=== PATIENT | female | born 1985 | race Caucasian/White ===

== ENCOUNTER → 2019-03-21 | Outpatient (CLI) | payer OTHER ==
--- NOTE | 2019-03-21 11:53 | KCIC ---
Thyroid ultrasound03/21/2019 9:00 AM Indication: Globus sensation. Technique: Multiple real-time pradhan scale images were obtained over the thyroid. Static images were submitted for interpretation. Comparison: None Findings: The thyroid gland is normal is size. Single coarse calcification noted in the superior left thyroid. Otherwise, the thyroid has a normal homogenous echotexture. Right thyroid measures 4.8 x 1.9 x 1.8 cm. Left Thyroid measures 3.7 x 1.5 x 1.3 cm.. Isthmus measures between 3 and 4 mm in thickness. There are no focal lesions or nodules. Collor doppler images demonstrate normal blood flow throughout the gland. IMPRESSION: 1. Single coarse calcification superior left thyroid gland. Likely clinically insignificant. 2. Otherwise unremarkable sonographic appearance of the thyroid gland. Electronically signed by: Moody العراقي MD (03/21/2019 11:50 AM) [id number]
== END | disposition home or self-care (01) ==
LOC: KCIC US 08:44
PROVIDERS: ATTEND Family Medicine
DX: E07.89 Other specified disorders of thyroid (principal); F45.8 Other somatoform disorders
CPT/HCPCS: 76536